=== PATIENT | female | born 1985 | race Caucasian/White ===

== ENCOUNTER 2024-10-12 15:45 | Outpatient (CLI) | payer OTHER, SELFPAY ==
--- NOTE | 2024-10-12 16:00 | CRLHL7_ITS ---
For Patients: As a result of the Century Cures Act, medical imaging exams and procedure reports are released immediately into your electronic medical record. You may view this report before your referring provider. If you have questions, please contact your health care provider. OB ULTRASOUND LESS THAN 14 WEEKS, 10/12/2024 CLINICAL HISTORY: IVF, dating and viability. TECHNIQUE: Real time null scale imaging of the fetus was performed. Transabdominal imaging performed. COMPARISON: None. FINDINGS: Imaging: TA. MARY: 05/08/2025. GA: 10 weeks 2 days. CRL: 4.0 cm, 10 weeks 6 days. MARY 05/04/2025. FHR: 178 bpm. GEST SAC: 4.9 cm, appears WNL. YOLK SAC: Not visualized. Posterior placenta. RIGHT OV: 3.1 x 1.6 x 2.2 cm. IMPRESSION: 1. Single living intrauterine measuring 10 weeks 6 days and sonographic due date 05/04/2025. 2. Right-sided fibroid measures 11 x 10 x 11 mm. Left-sided fibroid measures 22 x 17 x 16 mm. 3. An incidental subchorionic hemorrhage appears to be present. Shaq Vinson M.D. Diagnostic Radiologist [email or web address] Transcribed: 9:36 am DW/Dictated by: Shaq Vinson MD @ 10/13/2024 9:08:00 AM (Electronically Signed)
--- OUTSIDE RECORDS SUMMARY | 2024-10-12 16:53 | XMS_ITS | Patient Health Record ---
Author Organization [facility] Address [address] [place] [address] Care Team Providers Care Banquet Steward Name Role Phone None, No PCP Primary Care Provider Machelle e Melissa Saba Unavailable [phone] Allergies No Known Allergies Reason For Referral No Information Medications Medication SIG (Take, Route, Fr equency, Duration) Notes Start Date End Date Status Womens Multi Active Collagen Active Magnesium Active metroNIDAZOLE 500 MG 1 tablet Orally Twi ce a day for 10 days 07/03/2022 Active Vitamin C Active Vitamin D Active Social History Tobacco Use: Social History Observation Description Date Details (start date - stop date) Never Smoker NA - NA Tobacco Use/Smoking Question Answer Notes Are you a nonsmoker Alcohol Screen (Audit-C) Question Answer Notes Did you have a drink containing alcohol in the p ast year? No Points 0 Interpretation Negative Problems Problem Type SNOMED Code ICD Code Onset Dates Problem Status W/U Status Risk Notes Problem Menorrhagia (931167428) Menorrhagia (N92.0) Active confirmed Problem Abnormal uterine bleeding (N93.9) Active confirmed Problem Spotting (N92.0) Active confirmed Problem 424783680 Genital warts (A63.0) Active confirmed Plan Of Treatment Pending Test Test Name Order Date THINPREP TIS AND HPV mRNA E6/E7 (30 yrs and over) 05/08/2022 HIV 1/2 ANTIGEN/ANTIBODY,FOURTH GENERATI ON W/RFL 05/15/2022 COMPREHENSIVE METABOLIC PANEL (CMP) 04/16 CBC (INCLUDES DIFF/PLT) 05/08/2022 RPR (DX) W/REFL TITER AND CONFIRMATORY T ESTING 05/15/2022 HEMOGLOBIN A1c 05/08/2022 HEPATITIS B SURFACE ANTIGEN W/REFL CONFI RM 05/15/2022 VITAMIN B12 05/08/2022 FERRITIN 05/08/2022 HCG, TOTAL, QUANT 05/15/2022 HEPATITIS C AB W/REFL TO HCV RNA, QN, PC R 05/15/2022 VITAMIN D,25-OH,TOTAL,IA 05/08/2022 HSV 1/2 IgG, TYPE SPEC AB (Insurance RIGOBERTO L ONLY) 05/15/2022 Hysterosalpingogram 06/22/2022 Ultrasound : Breast, left 04/25/2022 ANTI-MULLERIAN HORMONE ([facility]), (Insurance Bill ONLY) 05/08/2022 Insurance Providers Payer Name Payer Address Payer Phone Subscriber Number Group Number Insured Name Patient Relationship to Insured Coverage Start Date Coverage End Date [facility] Shared Services (Ins. Bill) [address] [address] [place] [address] [phone] [id number] Dali Lizama Self - patient is the insured Medical (General) History Medical History History ICD Code Abnormal Pap 11/2020 Chicken Pox Migraines Surgical History Surgery Date(Month/Year)
--- OUTSIDE RECORDS SUMMARY | 2024-10-12 16:53 | XMS_ITS | Clinical Summary ---
Author Organization [facility] Address [address] [place] [address] Care Team Providers Care Section Repairer Name Role Phone AylabellRuben PA-C Primary Care Provider Source Comments You are receiving this document as you are listed as the primary care provider,follow-up provider, or the patient has been referred to you for consultation.This is in compliance with the Medicare andOhio[facility] Hospitalcaid EHR Incentive Program,which states Providers who transition their patient to another setting of careor provider of care or refers their patient to another provider of care shouldprovide summary care record for each transition of care or referral. [facility] Allergies No known active allergies Medications MAGNESIUM OR Active Ascorbic Acid (VITAMIN C OR) Activ e Cholecalcifero l (VITAMIN D) 50 MCG (1999) CAPS Active VIT-FE FUMARATE-FA OR Activ e Probiotic Product (PROBIOTIC-10 OR) 4 Active Digestive Enzymes (ENZYME DIGEST OR) 4 Active letrozole (FEMARA) 2.5 MG tablet Take 2 Tablets (5 mg) by mouth daily. 4 Active CLOMID 50 MG tablet Take 2 Tablets (100 mg) by mouth daily. 4 Active OVIDREL 250 MCG/0.5ML injection Inject 0.5 mL (250 mcg) subcutaneously once. 4 Active meclizine (ANTIVERT) 25 MG tabletIndicati ons:Lightheade dness Take 1 Tablet (25 mg) by mouth two times daily as needed for Dizziness/Vertigo. 30 Tablet 4 Active APRI 0.15-30 MG-MCG tablet Take 1 Tablet by mouth daily. 4 Active Active Problems Problem Noted Date Diagnosed Date Uterine leiomyoma 03/02/2024 Irritable bowel syndrome wit h both constipation and diarrhea 03/02/2024 Gluten intolerance 05/16/2023 Lactose intolerance in adult 05/16/2023 Infertility, female 01/15/2023 Overview (03/02/2024): [facility] reproductive medicine, currently doing IUI Trying to conceive since 04/2022 High cholesterol 10/31/2022 Varicose veins of legs 07/31/2017 Unspecified hearing loss, unspecified ear Resolved Problems Problem Noted Date Diagnosed Date Resolved Date Fall 07/06/2021 10/17/2022 Acute pain of both knees 07/06/202108/2022 Work related injury 07/06/2021 10/18/19 Upper back pain on right side 07/06/2021 10/17/2022 Cervical cancer screening 11/15/2020 Overview (05/14/2024): History: Last pap smear: In [place] 09/2020 she had an abnormal PAP (unsure which type) and was HPV+. Surgery was recommended by her family doctor in [place] 10/2020: ASCUS, HPV+ Other Colposcopy: negative bx. 1 showing some reactive change likely due to HPV per Dr Loyd 2022 NILM, HPV- 37 y.o. 2023: NILM, HPV- Plan per ASCCP Guidelines: repeat co-testing in 3 years (03/2027) Patellofemoral pain syndrome 01/05/2015 10/17/2022 Immunizations Immunization Administration Dates Next Due Hepatitis B - Surface Antibody Positive 10/30/19 23 Influenza IIV4 (Quadrivalent) 0.5mL (84477) 01/13 Moderna Monovalent 12+ 05/15/2021,08/06/2020, Positive Rubella Titer 10/29/2022 Positive Varicella Titer 10/29/2022 Tdap 05/22/2016 Family History Medical History Relation Name Comments Cancer, Ovary Mother Cancer, Uterine Mother 2014 Cancer, Prostate Paternal Aunt Heart Attack Paternal Grandfather Heart Disease Paternal Grandfather Cancer, Breast Negative Family History Relation Name Status Comments Father Alive Mother Alive Maternal Grandfather Alive Maternal Grandmother Paternal Aunt Paternal Grandfather Paternal Grandmother Sister Alive Social History Tobacco Use Types Packs/Day Years Used Date Smoking Tobacco: Never Smokeless Tobacco: Never Alcohol Use Standard Drinks/Week Comments Not Currently 4 (1 standard drink = 0.6 oz pur e alcohol) no use since 2020 PHQ-2 Answer Date Recorded PHQ-2 Score 4 05/16/2023 Comments No Sex and Gender Information Value Date Recorded Sex Assigned at Female 10/30/2020 8:27 PM CDT Legal Sex Female 6:57 AM CDT Gender Identity Female 10/30/2020 8:27 PM CDT Sexual Orientation Straight 10/30/2020 8: 27 PM CDT 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 on file Not on file Not on fi le Last Filed Vital Signs Vital Sign Reading Time Taken Comments Blood Pressure 99/70 04/13/2024 1:33 PM CHEMICAL PROCESS ANALYST Pulse 89 04/13/2024 1:33 PM CHEMICAL PROCESS ANALYST Temperature 36.6 C (97.9 F) 06/23/2021 5:56 PM CHEMICAL PROCESS ANALYST Respiratory Rate 18 06/23/2021 5:56 PM CHEMICAL PROCESS ANALYST Oxygen Saturation 99% 06/23/2021 5:56 PM CHEMICAL PROCESS ANALYST Inhaled Oxygen Concentration - - Weight 62.6 kg (138 lb) 04/13/2024 1:33 PM CHEMICAL PROCESS ANALYST Height 160.6 cm (5' 3.23) 03/02/2024 2:33 PM CS T Body Mass Index 24.27 03/02/2024 2:33 PM CHEMICAL PROCESS ANALYST Plan of Treatment Health Maintenance Due Date Last Done Comments Tuberculosis Screening 1987 COVID-19 Vaccine ( season) 2023 05/15/2021, 08/06/2020, 07/09/2020 Adult Preventive Visit 10/29/2024 10/29/2022, 2020 Influenza Vaccine (Season Ended) 2024 01/31/2017 DTaP/Tdap/Td Vaccine (2 - Tdap) 05/22/2026 05/22/2016 Cervical Cancer Screening 04/13/20272023, 04/13/2024, 07/26/2022, Additional history exists Zoster/Shingles Vaccine (1 of 2) 2037 HIV Screening (Preventive Services) Completed 04/13/2024, 10/29/2022, 11/01/2020, Additional history exists Hep C Screening (Preventive Services) Completed 04/13/2024, 10/29/2022, 11/01/2020 HPV Vaccine Aged Out No longer eligi ble based on patient's age to complete this topic HepA Vaccine Aged Out No longer eligi ble based on patient's age to complete this topic Hib Vaccine Aged Out No longer eligi ble based on patient's age to complete this topic IPV (Polio) Vaccine Aged Out No longe r eligible based on patient's age to complete this topic MCV4 Vaccine Aged Out No longer eligi ble based on patient's age to complete this topic Meningococcal B Vaccine Aged Out No l onger eligible based on patient's age to complete this topic Pneumococcal Vaccine Aged Out No long er eligible based on patient's age to complete this topic Procedures Procedure Name Priority Date/Time Associated Diagnosis Comments CYTOLOGY (PAP) Routine 04/13/2024 2:21 PM CHEMICAL PROCESS ANALYST Cervical cancer screening HIV 1/2 AG/AB 4TH GEN Routine 04/13/2024 2:09 PM CHEMICAL PROCESS ANALYST Routine screening for STI (sexually transmitted infection) HEPATITIS C ANTIBODY, WITH REFLEX (ANTI-HCV) Routine 04/13/2024 2:09 PM CHEMICAL PROCESS ANALYST Routine screening for STI (sexually transmitted infection) from Last 3 Months or Most Recently Relevant to Health Maintenance Results * PAP Test (04/13/2024 2:21 PM CHEMICAL PROCESS ANALYST) Case Report Pap Case: [id number] Authorizing Provider: Holli Brock MD Collected: 04/13/2024 1421 Ordering Location: [facility] Received: 04/13/2024 1437 Services-GAMBLING SUPERVISOR First Screen: Cinthia Marie Specimen: Pap Test, Routine, Cervix/Endocervix 05/14/2024 10:32 AM CHEMICAL PROCESS ANALYST [facility] Pap Specimen Adequacy Satisfactory for evaluation, endocervical/tripathi sformation zone component present. 05/14/2024 10:32 AM CHEMICAL PROCESS ANALYST [facility] Pap Interpretation (NILM) Negative for intraepithelial lesion or malignancy. 05/14/2024 10:32 AM CHEMICAL PROCESS ANALYST [facility] at 1032 CHEMICAL PROCESS ANALYST Pap Disclaimer The Pap test is a screening test to aid in the detection of cervical and vaginal cancers and their precursor lesions. It is not a diagnostic procedure and should not be used as the sole means of detecting malignancy. Both false-positive and false-negative results may occur. 05/14/2024 10:32 AM CHEMICAL PROCESS ANALYST [facility] Gross Description The specimen is received in SurePath fixative and properly labeled. 1 Pap-stained SurePath slide is prepared. 05/14/2024 10:32 AM CHEMICAL PROCESS ANALYST [facility] Embedded Images 10:32 AM CHEMICAL PROCESS ANALYST [facility] Other Specimen Type ENTIRE ENDOCERVIX / Unknown 04/13/2024 2:21 PM CHEMICAL PROCESS ANALYST 04/13/2024 2:39 PM CHEMICAL PROCESS ANALYST Comment:LMP: No LMP recorded . us Holli Brock MD LAB PATHOLOGY Final Result Performing Organization Address City/State/[place] de Phone Number [facility] [address] * HIV 1/2 Ag/Ab 4th Generation (04/13/2024 2:09 PM CHEMICAL PROCESS ANALYST) HIV 1/2 Antigen/Antib kelly (4th generation) Negative (Non Reactive) Negative (Non Reactive) 04/13/2024 8:07 PM CHEMICAL PROCESS ANALYST [facility] Comment:HIV-1 p24 Antigen an d HIV-1/HIV-2 Antibody not detected Blood Venipuncture / Unknown 04/13/2024 2:09 PM CHEMICAL PROCESS ANALYST 04/13/2024 2:09 PM CHEMICAL PROCESS ANALYST us Holli Brock MD LAB_1 Final Result Performing Organization Address City/State/[facility] Co de Phone Number [facility] [address] * Hepatitis C Antibody, with Reflex (04/13/2024 2:09 PM CHEMICAL PROCESS ANALYST) Hepatitis C Antibody Negative (Non Reactive) Negative (Non Reactive) 04/13/2024 8:07 PM CHEMICAL PROCESS ANALYST [facility] Comment:Antibodies to HCV no t detected. Does not exclude the possiblity of exposure to HCV. Blood Venipuncture / Unknown 04/13/2024 2:09 PM CHEMICAL PROCESS ANALYST 04/13/2024 2:09 PM CHEMICAL PROCESS ANALYST us Holli Brock MD LAB_1 Final Result Performing Organization Address [facility] Co de Phone Number [facility] [address] from Last 3 Months or Most Recently Relevant to Health Maintenance Insurance [employer] [place] [address] [place] [address] [place] [address] Care Teams Section Repairer Relationship Specialty Start Date End Date Ruben Feliciano PA-C [address] [phone] PCP - General Physician Patented Hogshead Assembler 06/03/23
--- OUTSIDE RECORDS SUMMARY | 2024-10-12 16:53 | XMS_ITS | Clinical Summary ---
Author Organization [facility] Address [address] [place] [address] Care Team Providers Care Union Steward Name Role Phone Freddie Hartman MD Unavailable [phone] No Ref-Primary, Physician Primary Care Provider Allergies No known active allergies Medications IBUPROFEN PO Take 1,000 mg by mouth as needed for moderate pain Reported on 07/30/2016 Active ACETAMINOPHEN PO Take 1,000 mg by mouth as needed for pain Reported on 07/30/2016 Active loratadine (CLARITIN) 10 MG tabletIndication s:Hives Take 1 tablet (10 mg) by mouth daily 30 tablet 1 7 Active predniSONE (DELTASONE) 20 MG tabletIndication s:Hives Take 1 tablet (20 mg) by mouth daily 5 tablet 7 Active amitriptyline (ELAVIL) 10 MG tabletIndication s:Insomnia, unspecified type Take 1 tablet (10 mg) by mouth At Bedtime 90 tablet 1 7 Active Active Problems Patient Care Coordination No te Formatting of this note migh t be different from the original. [email or web address] Problem Noted Date Diagnosed Date Patellofemoral pain syndrome 01/05/2015 Family History Medical History Relation Comments Substance Abuse Father Migraines Maternal Grandmother Ovarian Cancer Mother Relation Status Comments Father Maternal Grandmother Mother Social History Tobacco Use Types Packs/Day Years Used Date Smoking Tobacco: Never Alcohol Use Standard Drinks/Week Comments Yes 0 (1 standard drink = 0.6 oz pur e alcohol) 10 per week Adolescent Education Answer Date Record ed Getting School Help Needed Not on file 01/04 Comments No Sex and Gender Information Value Date Recorded Sex Assigned at Not on file Legal Sex Female 4:14 PM CDT Gender Identity Not on file Sexual Orientation Not on file Last Filed Vital Signs Vital Sign Reading Time Taken Comments Blood Pressure 96/62 07/30/2016 11:18 AM CDT Pulse 82 07/30/2016 11:18 AM CDT Temperature 36.7 C (98.1 F) 07/30/2016 11:18 AM CDT Respiratory Rate - - Oxygen Saturation 100% 07/30/2016 11:18 AM CDT Inhaled Oxygen Concentration - - Weight 55.4 kg (122 lb 3.2 oz) 07/30/2016 11:18 AM CDT Height 162.6 cm (5' 4) 07/30/2016 11:18 AM CDT Body Mass Index 20.98 07/30/2016 11:18 AM CDT Plan of Treatment Health Maintenance Due Date Last Done Comments ADVANCE CARE PLANNING 1987 ANNUAL REVIEW OF HM ORDERS 1987 DIABETES SCREENING 1987 HIV SCREENING 2002 HEPATITIS C SCREENING 2005 HEPATITIS B VACCINE (1 of 3 - 19+ 3-dose series) 2006 PAP 06/14/2019 06/13/2016 YEARLY PREVENTIVE VISIT 11/01/2021 11/01/2020 COVID-19 VACCINE (4 - 2023-2 5 season) 2023 05/15/2021, 08/06/2020, 07/09/2020 PHQ-2 (once per calendar year) 2024 INFLUENZA VACCINE (Season Ended) 2024 02/18/2019, 01/31/2017, 05/22/2016 DTAP/TDAP/TD VACCINE (2 - Td or Tdap) 05/22/2026 05/22/2016 ZOSTER VACCINE (1 of 2) 2037 HPV VACCINE Aged Out No longer eligi ble based on patient's age to complete this topic MENINGITIS VACCINE Aged Out No longer eligible based on patient's age to complete this topic PNEUMOCOCCAL VACCINE: PEDIATRICS (0 to 5 YEARS) AND AT-RISK PATIENTS (6 to 49 YEARS) Aged Out No longer eligible b ased on patient's age to complete this topic Procedures Procedure Name Priority Date/Time Associated Diagnosis Comments PAP SMEAR - HIM PATIENT REPORTED Routine 06/13/2016 from Last 3 Months or Most Recently Relevant to Health Maintenance Results * PAP Smear - HIM Patient Reported (06/13/2016) PAP Smear - HIM Patient Reported Negative EXTERNAL LAB 06/13/2016 Narrative EXTERNAL LAB - 06/13/2016 Patient reports normal Pap done at [facility] 06/13/16. us Patient Reported LABORATORY Final Result EXTERNAL LAB External Lab from Last 3 Months or Most Recently Relevant to Health Maintenance Insurance [facility] Care Teams Union Steward Relationship Specialty Start Date End Date No Ref-Primary, Physician PCP - General 07/26/22 Freddie Hartman MD Family Practice 12/21/14
--- OUTSIDE RECORDS SUMMARY | 2024-10-13 02:26 | XMS_ITS | Clinical Summary ---
Author Organization [facility] Address [address] [place] [address] Care Team Providers Care Personal Care Assistant Name Role Phone Freddie Hartman MD Unavailable [phone] No Ref-Primary, Physician Primary Care Provider Allergies [...] migh t be different from the original. [email or web address] Problem Noted Date Diagnosed Date Patellofemoral pain [...] 06/13/2016 Patient reports normal Pap done at [facility] 06/13/16. us Patient Reported LABORATORY Final Result EXTERNAL LAB External Lab from Last 3 Months or Most Recently Relevant to Health Maintenance Insurance [facility] Care Teams Personal Care Assistant Relationship Specialty Start Date End Date No Ref-Primary, Physician PCP - General 07/26/22 Freddie Hartman MD Family Practice 12/21/14
--- OUTSIDE RECORDS SUMMARY | 2024-10-13 02:26 | XMS_ITS | Clinical Summary ---
Author Organization [facility] Address [address] [place] [address] Care Team Providers Care Centrifuge Separator Operator Name Role Phone AylabellRuben PA-C Primary Care Provider [phone] Source Comments You are receiving this document as you are listed as the primary care provider,follow-up provider, or the patient has been referred to you for consultation.This is in compliance with the Medicare and[facility] EHR Incentive Program,which states Providers who transition their patient to another setting of careor provider of care or refers their patient to another provider of care shouldprovide summary care record for each transition of care or referral. [facility] Allergies No known active allergies [...] adult 05/16/2023 Infertility, female 01/15/2023 Overview (03/02/2024): [facility] reproductive medicine, currently doing IUI Trying [...] Overview (05/14/2024): History: Last pap smear: In [place] 09/2020 she had an abnormal PAP (unsure which type) and was HPV+. Surgery was recommended by her family doctor in [place] 10/2020: ASCUS, HPV+ Other Colposcopy: negative bx. 1 showing some reactive change likely due to HPV per Dr Loyd 2022 NILM, HPV- 37 y.o. 2023: NILM, HPV- Plan per ASCCP Guidelines: repeat co-testing in 3 years (03/2027) Patellofemoral pain syndrome 01/05/2015 10/17/2022 Immunizations Immunization Administration Dates Next Due Hepatitis B - Surface Antibody Positive 10/30/19 23 Influenza IIV4 (Quadrivalent) 0.5mL (79314) 01/13 Moderna Monovalent 12+ 05/15/2021,08/06/2020, Positive Rubella [...] Comments Blood Pressure 99/70 04/13/2024 1:33 PM T[facility] CLOSER Pulse 89 04/13/2024 1:33 PM [facility] CLOSER Temperature 36.6 C (97.9 F) 06/23/2021 5:56 PM T[facility] CLOSER Respiratory Rate 18 06/23/2021 5:56 PM [facility] CLOSER Oxygen Saturation 99% 06/23/2021 5:56 PM [facility] CLOSER Inhaled Oxygen Concentration - - Weight 62.6 kg (138 lb) 04/13/2024 1:33 PM T[facility] CLOSER Height 160.6 cm (5' 3.23) 03/02/2024 2:33 PM CS T Body Mass Index 24.27 03/02/2024 2:33 PM T[facility] CLOSER Plan of Treatment Health Maintenance Due Date [...] Comments CYTOLOGY (PAP) Routine 04/13/2024 2:21 PM T[facility] CLOSER Cervical cancer screening HIV 1/2 AG/AB 4TH GEN Routine 04/13/2024 2:09 PM T[facility] CLOSER Routine screening for STI (sexually transmitted infection) HEPATITIS C ANTIBODY, WITH REFLEX (ANTI-HCV) Routine 04/13/2024 2:09 PM T[facility] CLOSER Routine screening for STI (sexually transmitted infection) from Last 3 Months or Most Recently Relevant to Health Maintenance Results * PAP Test (04/13/2024 2:21 PM TITLE CLOSER) Case Report Pap Case: [id number] Authorizing Provider: Holli Brock MD Collected: 04/13/2024 1421 Ordering Location: [facility] Received: 04/13/2024 1435 Services-INSOLE DEPARTMENT WORKER First Screen: Cinthia Marie Specimen: Pap Test, Routine, Cervix/Endocervix 05/14/2024 10:32 AM T[facility] CL[facility]ER [facility] Pap Specimen Adequacy Satisfactory for evaluation, endocervical/tripathi sformation zone component present. 05/14/2024 10:32 AM [facility] Pap Interpretation (NILM) Negative for intraepithelial lesion or malignancy. 05/14/2024 10:32 AM T[facility] CLOSER [facility] at 1032 T[facility] CLOSER Pap Disclaimer The Pap test is a screening test to aid in the detection of cervical and vaginal cancers and their precursor lesions. It is not a diagnostic procedure and should not be used as the sole means of detecting malignancy. Both false-positive and false-negative results may occur. 05/14/2024 10:32 AM TITLE CLOSER [facility] Gross Description The specimen is received in SurePath fixative and properly labeled. 1 Pap-stained SurePath slide is prepared. 05/14/2024 10:32 AM T[facility] CLOSER [facility] Embedded Images 10:32 AM T[facility] CL[facility]ER [facility] Other Specimen Type ENTIRE ENDOCERVIX / Unknown 04/13/2024 2:21 PM T[facility] CLOSER 04/13/2024 2:39 PM [facility] CLOSER Comment:LMP: No LMP recorded . us Holli Brock MD LAB PATHOLOGY Final Result Performing Organization Address City/State/[facility] de Phone Number [facility] [address] * HIV 1/2 Ag/Ab 4th Generation (04/13/2024 2:09 PM TITLE CLOSER) HIV 1/2 Antigen/Antib kelly (4th generation) Negative (Non Reactive) Negative (Non Reactive) 04/13/2024 8:07 PM T[facility] CL[facility] Comment:HIV-1 p24 Antigen an d HIV-1/HIV-2 Antibody not detected Blood Venipuncture / Unknown 04/13/2024 2:09 PM T[facility] CLOSER 04/13/2024 2:09 PM T[facility] CLOSER us Holli Brock MD LAB_1 Final Result Performing Organization Address City/State/[facility] Co de Phone Number [facility] [address] * Hepatitis C Antibody, with Reflex (04/13/2024 2:09 PM TITLE CLOSER) Hepatitis C Antibody Negative (Non Reactive) Negative (Non Reactive) 04/13/2024 8:07 PM T[facility] CLOSER [facility] Comment:Antibodies to HCV no t detected. Does not exclude the possiblity of exposure to HCV. Blood Venipuncture / Unknown 04/13/2024 2:09 PM T[facility] CLOSER 04/13/2024 2:09 PM T[facility] CLOSER us Holli Brock MD LAB_1 Final Result Performing Organization Address [facility] Co de Phone Number [facility] [address] from Last 3 Months or Most Recently Relevant to Health Maintenance Insurance [place] [address] [place] [address] [place] [address] [address] Care Teams Centrifuge Separator Operator Relationship Specialty Start Date End Date Ruben Feliciano PA-C [address] [place] Olvera [phone] PCP - General Physician [employer] Farm Manager 06/03/23
--- OUTSIDE RECORDS SUMMARY | 2024-10-13 02:26 | XMS_ITS | Patient Health Record ---
Author Organization [facility] Address [address] [place] [address] Care Team Providers Care Needle Grinder Name Role Phone None, No PCP Primary Care Provider Machelle e Melissa Saba Unavailable [phone] Allergies No Known Allergies Reason For [...] Status W/U Status Risk Notes Problem Menorrhagia (887325219) Menorrhagia (N92.0) Active confirmed Problem Abnormal uterine bleeding (81062898486303) Abnormal uterine bleeding (N93.9) Active confirmed Problem Spotting (0256969) Spotting (N92.0) Active confirmed Problem [id number] Genital warts (A63.0) Active confirmed Plan Of [...] Insured Coverage Start Date Coverage End Date [facility] Shared Services (Ins. Bill) [address] [address] [place] [address] [phone] [id number] A [id number] Dali Lizama Self - patient is the insured Medical (General) History Medical History History ICD Code Abnormal Pap 11/2020 Chicken Pox Migraines Surgical History Surgery Date(Month/Year)
== END 2024-10-12 15:46 | disposition home or self-care (01) ==
LOC: US 15:48
PROVIDERS: Visit Provider Physician Assistant
DX: O09.521 Supervision of elderly multigravida, first trimester (principal); O09.811 Supervision of pregnancy resulting from assisted reproductive technology, first trimester; Z3A.09 9 weeks gestation of pregnancy
CPT/HCPCS: 76801; 83021; 86592; 86703; 86704; 86706; 86762; 86787; 86803; 86850; 86900; 86901; 87086; 87340

== ENCOUNTER 2025-02-12 08:20 | Outpatient (CLI) | payer OTHER, SELFPAY | END 2025-02-12 08:21 | disposition home or self-care (01) | LOC: NFLDREF 02-23 11:19 | PROVIDERS: Visit Provider Obstetrics & Gynecology | DX: Z34.93 Encounter for supervision of normal pregnancy, unspecified, third trimester (principal) | CPT/HCPCS: 86592 ==

== ENCOUNTER 2025-02-24 14:41 | Outpatient (CLI) | payer OTHER, SELFPAY ==
[2025-02-24] VITALS (14 sets, daily range): BP systolic 106–112; BP diastolic 65–76; PULSE 103–122; RESP 18–20; TEMP 37.2; O2SAT 96–100
[2025-02-24] MEDS: LACTATED RINGERS 500 ML 500 ML IV (15:26)
--- NOTE | 2025-02-24 16:27 | PC.OBNST ---
NST Note NST Note Start: 02/24/25 14:52 Freq: ONCE Status: Active Protocol: Document 02/24/25 14:52 BRM (Rec: 02/24/25 16:27 BRM No Response) NST Note 1 Para (# of births) 0 EDC 05/08/25 Gestational Age In 29 Weeks & 4 Days Weeks & Days Patient Presented Decreased movement with Complaint(s) of Reactive Yes Appropriate for Yes Gestational Age OTONIEL DALEY MD Date 02/24/25 Reactive Yes Appropriate for Yes Gestational Age OTONIEL Jackson RN Date 02/24/25 OB NST charge Yes Complete NST Note Yes via Write Note The provider's electronic signature indicates the NST is reactive/appropriate for gestational age. *Note to provider: If an addendum is required, open the patient's chart and click on the note under the Nurse/Allied Health tab.
== END 2025-02-24 16:15 | disposition home or self-care (01) ==
LOC: OB OUT 14:42 → OB 14:43
PROVIDERS: Visit Provider Obstetrics & Gynecology
DX: O36.8130 Decreased fetal movements, third trimester, not applicable or unspecified (principal); Z3A.29 29 weeks gestation of pregnancy
CPT/HCPCS: 59025; G0463; J7120

== ENCOUNTER 2025-03-03 10:06 | Outpatient (CLI) | payer OTHER, SELFPAY | END 2025-03-03 10:07 | disposition home or self-care (01) | LOC: US 10:07 | PROVIDERS: Visit Provider Obstetrics & Gynecology | DX: O44.43 Low lying placenta NOS or without hemorrhage, third trimester (principal); O09.523 Supervision of elderly multigravida, third trimester; O09.813 Supervision of pregnancy resulting from assisted reproductive technology, third trimester; Z3A.30 30 weeks gestation of pregnancy | CPT/HCPCS: 76811 ==

== ENCOUNTER 2025-03-25 20:33 | Outpatient (CLI) | payer OTHER, SELFPAY ==
[2025-03-25 20:46] VITALS: BP 112/67; PULSE 92; RESP 18; TEMP 36.7
[2025-03-25 20:58] LABS: Appearance Urine Clear (Clear)
--- NOTE | 2025-03-25 21:07 | CRLHL7_ITS ---
For Patients: As a result of the Century Cures Act, medical imaging exams and procedure reports are released immediately into your electronic medical record. You may view this report before your referring provider. If you have questions, please contact your health care provider. INDICATION: Decreased movement. TECHNIQUE: Ultrasound OB pelvis transabdominal. Real-time null-scale imaging of the fetus was performed without stress testing. COMPARISON: 03/03/2025. FINDINGS: Single living intrauterine gestation. Fetus heart activity: Regular cardiac rate at 125 beats per minute. Fetus has a vertex orientation. The placenta lies posterior. Amniotic fluid volume appears normal. breathing movements, motion, and tone were all observed. IMPRESSION: Single viable intrauterine with a biophysical profile 11/20. Dictated by Wilder [facility] MD @ 03/25/2025 11:06:25 PM (Electronically Signed)
--- NOTE | 2025-03-25 22:55 | PC.OBNST ---
NST Note NST Note Start: 03/25/25 20:37 Freq: ONCE Status: Active Protocol: Document 03/25/25 22:54 MRN (Rec: 03/25/25 22:55 ) NST Note 1 Para (# of births) 0 EDC 05/07/25 Gestational Age In 33 Weeks & 6 Days Weeks & Days Patient Presented Contractions/cramping with Complaint(s) of Reactive Yes Appropriate for Yes Gestational Age OTONIEL Crockett RN Date 03/25/25 Reactive Yes Appropriate for Yes Gestational Age OTONIEL Hinojosa RN Date 03/25/25 OB NST charge Yes Complete NST Note Yes via Write Note The provider's electronic signature indicates the NST is reactive/appropriate for gestational age. *Note to provider: If an addendum is required, open the patient's chart and click on the note under the Nurse/Allied Health tab.
== END 2025-03-25 22:56 | disposition home or self-care (01) ==
LOC: OB OUT 20:33 → OB 20:33
PROVIDERS: Visit Provider Obstetrics & Gynecology
DX: O47.03 False labor before 37 completed weeks of gestation, third trimester (principal); Z3A.33 33 weeks gestation of pregnancy
CPT/HCPCS: 59025; 76819; 81001; 81003; 87086; G0463

== ENCOUNTER 2025-03-31 09:32 | Outpatient (CLI) | payer OTHER, SELFPAY | END 2025-03-31 09:33 | disposition home or self-care (01) | LOC: NFLDREF 04-05 08:05 | PROVIDERS: Visit Provider Advanced Practice Midwife | DX: O09.513 Supervision of elderly primigravida, third trimester (principal) | CPT/HCPCS: 82728 ==

== ENCOUNTER 2025-04-12 07:15 | Outpatient (CLI) | payer OTHER, SELFPAY ==
--- NOTE | 2025-04-12 07:15 | CRLHL7_ITS ---
For Patients: As a result of the Century Cures Act, medical imaging exams and procedure reports are released immediately into your electronic medical record. You may view this report before your referring provider. If you have questions, please contact your health care provider. INDICATION: Minimal breathing TECHNIQUE: Ultrasound OB pelvis transabdominal. Real-time null-scale imaging of the fetus was performed without stress testing. COMPARISON: Ob ultrasound 03/25/2025 FINDINGS: Sonographic imaging demonstrates a single intrauterine gestation. Fetus demonstrates a regular cardiac rate of 121 beats per minute. Fetus has a cephalic orientation. Biometric measurements: Biparietal diameter: 39 percentile. Head circumference: 29 percentile. Abdominal circumference: 86 percentile. Femur length: 27 percentile. Estimated weight: 2987 grams, 62 percentile. Estimated ultrasound age by today`s measurements is 05/08/2025. Amniotic fluid volume appears normal. breathing movements were not visualized. tone and movement were visualized per vp. IMPRESSION: Montoya intrauterine in cephalic presentation. Cardiac activity is present. Biophysical profile of 09/20 without visualized breathing meeting criteria. Estimated weight of 2897 grams, which is at 62nd percentile. Biometry is concordant with estimated gestational age of 36 weeks, 2 days. Dictated by Kiki Ag MD @ 04/12/2025 8:19:38 AM (Electronically Signed)
== END 2025-04-12 07:16 | disposition home or self-care (01) ==
PROVIDERS: Visit Provider Obstetrics & Gynecology
DX: O36.8330 Maternal care for abnormalities of the fetal heart rate or rhythm, third trimester, not applicable or unspecified (principal); Z3A.36 36 weeks gestation of pregnancy
CPT/HCPCS: 76816; 76819

== ENCOUNTER 2025-04-12 09:10 | Outpatient (CLI) | payer OTHER, SELFPAY ==
[2025-04-13 11:18] LABS: Strep B DNA Probe Negative (Negative)
[2025-04-13 11:31] LABS: Strep B Susceptibility Needed? No
== END 2025-04-12 09:11 | disposition home or self-care (01) ==
LOC: NFLDREF 09:17
PROVIDERS: Visit Provider Advanced Practice Midwife
DX: Z34.91 Encounter for supervision of normal pregnancy, unspecified, first trimester (principal)
CPT/HCPCS: 87081; 87653